=== PATIENT | female | born 1990 | race Caucasian/White ===

== ENCOUNTER 2016-04-26 09:36 | Emergency (ER) | payer OTHER ==
[2016-04-26 11:21] VITALS: BP 107/61
--- NOTE | 2016-04-26 11:34 | UC ---
Complaint Female HPI - HPI Summary HPI Summary: 25 yo healthy female presents with 2 weeks of intermittent dysuria, with 2-3 days of constant dysuria, increased frequency and urgency. One episode of hematuria noted in urine 3 days ago since resolved. No fevers or chills. No N/ V. No flank/back pain. No vaginal discharge, itching. Currently menstruating. - History Of Current Complaint Chief Complaint: UCGU Stated Complaint: URINARY COMPLAINT Time Seen by Provider: 04/26/16 11:34 Hx Obtained From: Patient Hx Last Menstrual Period: 04/21/16 Onset/Duration: Gradual Onset, Lasting Weeks - 2 weeks, Worse Since - 2-3 days ago Severity Initially: Mild Severity Currently: Moderate Pain Intensity: 2 Pain Scale Used: 0-10 Numeric Character: Burning Aggravating Factor(s): Urination Associated Signs And Symptoms: Positive: Negative - Risk Factors Ectopic Risk Factor: Negative Ovarian Torsion Risk Factor: Negative - Allergies/Home Medications Allergies/Adverse Reactions: Allergies Allergy/AdvReac Type Severity Reaction Status Date / Time Erythromycin Allergy Swelling Verified 04/26/16 11:15 Of Face,Lips,& Throat Home Medications: Home Medications Cranberry (Vaccinium Macrocarp [Cranberry] 500 mg PO DAILY 04/26/16 [History Confirmed 04/26/16] Norethindr/Eth Estradiol(Nf) [Lo Loestrin Fe (NF)] 1 tab PO DAILY 04/26/16 [ History Confirmed 04/26/16] Phenazopyridine HCl [Azo Urinary Pain Relief] 95 - 190 mg PO TID PRN 04/26/16 [ History Confirmed 04/26/16] PMH/Surg Hx/FS Hx/Imm Hx Previously Healthy: Yes Endocrine History Of: Denies: Diabetes - Surgical History Surgical History: None - Family History Known Family History: Positive: None, Unknown - Social History Occupation: Unemployed Lives: With Family Alcohol Use: Weekly Substance Use Type: None Smoking Status (MU): Light Every Day Tobacco Smoker Type: Smokeless Tobacco Amount Used/How Often: 1/2 Can a Day Length of Time of Smoking/Using Tobacco: 7 Years Have You Smoked in the Last Year: Yes Cessation Counseling: Patient Advised to Stop - Immunization History Hx Tetanus, Diphtheria Vaccination: Yes Vaccination Up to Date: Yes Review of Systems Constitutional: Other - urinary symptoms Skin: Negative Eyes: Negative ENT: Negative Respiratory: Negative Cardiovascular: Negative Gastrointestinal: Negative Genitourinary: Dysuria, Frequency, Urgency Motor: Negative Neurovascular: Negative Musculoskeletal: Negative Neurological: Negative Psychological: Negative All Other Systems Reviewed And Are Negative: Yes Physical Exam Triage Information Reviewed: Yes Appearance: Well-Appearing, No Pain Distress, Well-Nourished, Ill-Appearing Vital Signs: Initial Vital Signs Temp 97.5 F 04/26/16 11:17 Pulse 70 04/26/16 11:17 Resp 16 04/26/16 11:17 BP 107/61 04/26/16 11:17 Pulse Ox 100 04/26/16 11:17 Vital Signs Reviewed: Yes Eye Exam: Normal Respiratory Exam: Normal Respiratory: Positive: Chest non-tender, Lungs clear, Normal breath sounds, No respiratory distress, No accessory muscle use Cardiovascular: Positive: RRR, No Murmur, Pulses Normal, Brisk Capillary Refill Abdomen Description: Positive: Nontender, No Organomegaly, Soft. Negative: CVA Tenderness (R), CVA Tenderness (L), Distended, Guarding, Hepatomegaly, Peritoneal Signs, Splenomegaly Bowel Sounds: Positive: Present Musculoskeletal: Positive: Strength Intact, ROM Intact, No Edema Neurological: Positive: Alert Complaint Female Dx - Differential Dx/Diagnosis Differential Diagnosis/HQI/PQRI: Urinary Tract Infection Provider Diagnoses: 1. Uncomplicated cystitis Discharge - Discharge Plan Condition: Stable Disposition: HOME Patient Education Materials: Urinary Tract Infection in Women (ED) Referrals: Jeanine Weaver MD [Primary Care Provider] - (please follow up if your symptoms do not improve in 2 days. if you have any worsening or concerning symptoms go to the emergency department) Additional Instructions: Increase water intake. Finish whole antibiotic course. As discussed we will send your urine for culture.
== END 2016-04-26 12:05 | disposition home or self-care (01) ==
LOC: UCCORT 09:36
DX: N30.80 Other cystitis without hematuria (principal); Z88.1 Allergy status to other antibiotic agents; F17.210 Nicotine dependence, cigarettes, uncomplicated
CPT/HCPCS: 81003; 87077; 87086; 87186; 99212; G0463

== ENCOUNTER 2016-11-15 16:30 | Emergency (ER) | payer OTHER ==
[2016-11-15 18:07] VITALS: BP 120/62
[2016-11-15] MEDS ORDERED: Ibuprofen TAB* 600 MG PO ONE (18:17)
--- NOTE | 2016-11-15 18:26 | UC ---
Lower Extremity/Ankle HPI - HPI Summary HPI Summary: Twisted Left foot/ankle at soft ball last night medial ankle and foot pain--- has trouble bearing weight - History of Current Complaint Chief Complaint: UCLowerExtremity Stated Complaint: LEFT ANKLE/FOOT Time Seen by Provider: 11/15/16 18:08 Hx Obtained From: Patient Hx Last Menstrual Period: has mirena ?: No Onset/Duration: Sudden Onset, Lasting Days - 1 Severity Initially: Moderate Severity Currently: Moderate Pain Intensity: 8 Pain Scale Used: 0-10 Numeric Aggravating Factor(s): Standing, Ambulation Alleviating Factor(s): Rest, Elevation, Ice, OTC Meds Able to Bear Weight: Yes - with pain - Allergies/Home Medications Allergies/Adverse Reactions: Allergies Allergy/AdvReac Type Severity Reaction Status Date / Time Erythromycin Allergy Swelling Verified 11/15/16 18:02 Of Face,Lips,& Throat Home Medications: Home Medications Ibuprofen TAB* [Motrin TAB* 800 MG] 800 mg PO Q8H PRN 11/15/16 [History Confirmed 11/15/16] Levonorgestrel (Iud) [Mirena IUD] 20 mcg IU SEE INSTRUCTIONS 11/15/16 [History Confirmed 11/15/16] PMH/Surg Hx/FS Hx/Imm Hx Previously Healthy: Yes - Surgical History Surgical History: None - Family History Known Family History: Positive: None, Unknown - Social History Occupation: Employed Full-time Lives: With Family Alcohol Use: Occasionally Substance Use Type: None Smoking Status (MU): Never Smoked Tobacco Type: Smokeless Tobacco Amount Used/How Often: 1/2 Can a Day Length of Time of Smoking/Using Tobacco: 7 Years Have You Smoked in the Last Year: Yes Cessation Counseling: Patient Advised to Stop - Immunization History Hx Tetanus, Diphtheria Vaccination: Yes Vaccination Up to Date: Yes Review of Systems Constitutional: Negative Skin: Negative Eyes: Negative ENT: Negative Respiratory: Negative Cardiovascular: Negative Gastrointestinal: Negative Genitourinary: Negative Motor: Negative Neurovascular: Negative Musculoskeletal: Arthralgia - left medial ankle and foot pain Neurological: Negative Psychological: Negative Is Patient Immunocompromised?: No All Other Systems Reviewed And Are Negative: Yes Physical Exam Triage Information Reviewed: Yes Appearance: Well-Appearing, Well-Nourished, Pain Distress - mild Vital Signs: Initial Vital Signs Temp 97.8 F 11/15/16 18:04 Pulse 84 11/15/16 18:04 Resp 16 11/15/16 18:04 BP 120/62 11/15/16 18:04 Pulse Ox 100 11/15/16 18:04 Vital Signs Reviewed: Yes Eye Exam: Normal Eyes: Positive: Conjunctiva Clear ENT Exam: Normal ENT: Positive: Normal ENT inspection, Hearing grossly normal, TMs normal. Negative: Nasal congestion, Nasal drainage, Trismus, Muffled/hoarse voice Dental Exam: Normal Neck exam: Normal Neck: Positive: Supple, Nontender Respiratory Exam: Normal Respiratory: Positive: Chest non-tender, No respiratory distress, No accessory muscle use, Respiratory distress Cardiovascular Exam: Normal Cardiovascular: Positive: RRR, Pulses Normal, Brisk Capillary Refill Musculoskeletal Exam: Normal Musculoskeletal: Positive: No Edema, Strength Limited @ - left foot, ROM Limited @ - left foot Neurological Exam: Normal Neurological: Positive: Alert, Muscle Tone Normal Psychological Exam: Normal Skin Exam: Normal Diagnostics - Radiology No standard instances Xray Interpretation: No Acute Changes Radiology Interpretation Completed By: Radiologist Lower Extremity Course/Dx - Course Course Of Treatment: gel, padamja, crutches, rice, pain med, follow with ortho - Differential Dx/Diagnosis Provider Diagnoses: Left ankle sprain Discharge - Discharge Plan Condition: Stable Disposition: HOME Patient Education Materials: Ibuprofen (By mouth), Ankle Sprain (ED), Crutch Instructions (ED), Ankle Stirrup Splint (ED), RICE Therapy (ED) Referrals: Baldemar Javier MD [Medical Doctor] - 4 Days
--- NOTE | 2016-11-15 18:43 | RAD ---
HISTORY: Pain after softball injury, left foot pain COMPARISONS: July 31, 2003 VIEWS: 6, Frontal, lateral, and oblique views of the left foot and left ankle FINDINGS: BONE DENSITY: Normal. BONES: There is no displaced fracture. JOINTS: There is no arthropathy. ALIGNMENT: There is no dislocation. SOFT TISSUES: Unremarkable. OTHER FINDINGS: None. IMPRESSION: NO ACUTE OSSEOUS INJURY TO THE LEFT FOOT OR LEFT ANKLE. IF SYMPTOMS PERSIST, RECOMMEND REPEAT IMAGING.
[2016-11-15] MEDS ORDERED: HYDROcodone/ACETAMIN 5-325 MG* 1 TAB PO ONE (19:01)
== END 2016-11-15 19:38 | disposition home or self-care (01) ==
LOC: UCCORT 16:30
DX: S99.912A Unspecified injury of left ankle, initial encounter (principal); X50.1XXA Overexertion from prolonged static or awkward postures, initial encounter; Y93.64 Activity, baseball; Y92.838 Other recreation area as the place of occurrence of the external cause; Z88.1 Allergy status to other antibiotic agents
CPT/HCPCS: 99213; A9270-GY; G0463

== ENCOUNTER 2017-07-27 18:42 | Emergency (ER) | payer OTHER ==
[2017-07-27 18:50] VITALS: BP 129/75
--- NOTE | 2017-07-27 19:27 | RAD ---
HISTORY: Vaginal bleeding in a female. COMPARISONS: Pelvic ultrasound dated July 06, 2017 TECHNIQUE: Multiple transverse and longitudinal ultrasound images were obtained of the pelvis using grayscale, color flow, spectral and M-mode sonographic imaging. FINDINGS: UTERUS: The uterus is normal in shape, size, contour, and echotexture. There is anechoic and avascular fluid at the level of the cervix consistent with a nabothian cyst. GESTATION: No products of conception or a gestational sac are visualized. CUL-DE-SAC: There is no free fluid within the cul-de-sac. RIGHT OVARY: The right ovary measures 4.6 x 1.9 x 2.0 cm. LEFT OVARY: The left ovary measures 3.1 x 1.7 x 3.9 cm. IMPRESSION: There is no sonographic evidence of . Differential in the presence of a positive beta hCG includes too early to visualize, missed or ectopic . Recommend close clinical and beta hCG follow up.
--- OUTSIDE RECORDS SUMMARY | 2017-07-27 19:47 | XMS REPORT ---
:1990 External Reference #:[id number] Author Organization [facility] Address [address] [place] [address] Phone [phone] Care Team Providers Name Role Phone Jeanine Weaver M.D. Care Team Information Clinical Administrative Coordinator Unavailable Jeanine Weaver M.D. Primary Care Physician Unavailable Payers Type Date Identification Numbers Payment Provider Subscriber Commercial Effective: Policy Number: Charissa Marina 2017 [id number] Expires: 2017 PayID: [id number] [address] [place] [address] Medigap Part B Effective: Policy Number: Uriel Carrington 2014 [id number] Expires: 2017 PayID: [id number] [address] Attn: [place] [address] Problems Date Description Provider Status Onset: 09/12/2015 Mild recurrent major depression Ursula Davalos NP Active Onset: 10/22/2015 Cyst of ovary Jeanine Weaver M.D. 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 [employer] Cigarette Use Nonsmoker ETOH Use Occasionally consumes alcohol Recreational Drug Use Denies Drug Use Smoking Nonsmoker Daily Caffeine Consumes on average 1 cup of coffee per day Exercise Type/Frequency Exercises sporadically Seat Belt/Car Seat Always uses seat belt Allergies, Adverse Reactions, Alerts Date Description Reaction Status Severity Comments 05/17/2015 Seasonal active 05/17/2015 Erythromycin active Medications Medication Date Status Form Strength Qnty SIG Indications Ordering Provider Metronidazole 07/06/ Active Tablets 500mg 14tab take 1 N76.0 Shira Moran 2018 s tablet by [place], mouth twice CDL DRIVER a day for 7 days Gabapentin 03/26/ Active Capsules 300mg 90cap one by F41.9 Shira Moran 2018 s mouth three [place], times daily CDL DRIVER Escitalopram 03/26/ Hx Tablets 5mg 14tab 1 by mouth F41.9 Kavita Newton Oxalate 2018 - s every day Kai, 04/26/ for a week, CDL DRIVER 2018 then one by mouth every other day until gone Escitalopram 01/11/ Hx Tablets 10mg 30tab 1 by mouth F41.9 Jeanine Oxalate 2017 - s every day [place], 03/26/ M.D. 2017 Ativan 01/11/ Hx Tablets 0.5mg 30tab take 02/09 - F41.9 Shira Moran 2017 - s 1 tab as [place], 03/26/ needed for CDL DRIVER 2018 anxiety Flagyl 01/11/ Hx Tablets 500mg 14tab 1 by mouth N76.0 Shira Moran 2017 - s twice a day [place], 03/23/ x 7d CDL DRIVER 2018 Metronidazole 10/16/ Hx Gel 0.75% 30gm insert 1 N76.0 Marine 2017 - applicator Nima, 01/10/ full WASTE RECYCLER 2017 nightly for one week Mirena (52 MG) 08/06/ Hx IUD 20mcg/24H 08/06/16 Marine 2017 - R Remove Nima, 06/22/ 07/2021 WASTE RECYCLER 2017 Lessina 03/26/ Hx Tablets 0.1-20mg- 1pack 1 by mouth Z30.8 Leilani 2017 - mcg every day Magda, 08/05/ WASTE RECYCLER 2016 Lessina 09/22/ Hx Tablets 0.1-20mg- 1pack 1 by mouth Z30.8 Campbell Oakley 2016 - mcg every day Conchis, 02/04/ M.D. 2015 Xualexander 09/11/ Hx Patches 150-35mcg 6unit apply 1 Jeanine 2016 - Weekly /24HR s patch [place], 09/21/ weekly and M.D. 2016 replace prior Bupropion HCL 09/11/ Hx Tablets ER 150mg 30tab 1 by mouth F33.0 Campbell Oakley ER (XL) 2016 - 24HR s every day Midmendoza, 08/05/ M.D. 2017 Nuvaring 05/16/ Hx Ring 0.12-0.01 1unit insert one Z30.8 Favio Bruno 2016 - 5[facility]HR [facility] and M.D. 2016 remove 3 weeks later and replace the ring 1 week after removal Escitalopram 05/16/ Hx Tablets 10mg 30tab Take 1 F33.0 Favio Adams 2016 - s Tablet By Olivia, 09/11/ Mouth Once M.D. 2016 Daily Zyrtec Allergy / Hx Capsules 10mg use by Unknown 0000 - mouth q.d 2016 Prednisone / Hx Tablets 10mg 4 by mouth Unknown 0000 - x 2 days, 09/11/ 3 by 2015 mouth x 2 days, then 2 by mouth x 2 days,then 1 by mouth x 1 day Vitamin D / Hx Tablets 2000Unit 1 by mouth Unknown 0000 - every day 2015 Immunizations CPT Code Status Date Vaccine Lot # [id number] Given 05/17/2007 Gardasil vacine typs 6,11,16,18 3 dose schedule 16539 Given 05/06/2007 Gardasil vacine typs 6,11,16,18 3 dose schedule 23372 Given 03/03/2007 Gardasil vacine typs 6,11,16,18 3 dose schedule 00336 Given 11/12/2006 Meningococcal Conjugate Vaccine,Serogroups For Intramuscular Use 70021 Given 11/12/2006 Tdap Tetanus, W Pertussis 85889 Given 04/30/2004 Hepatitis B Immunization, -19 Years 67327 Given 09/25/2003 Hepatitis B Immunization, -19 Years 05924 Given 07/31/2003 Hepatitis B Immunization, [place]-19 Years 85770 Given 04/28/1996 (IPV) Inactive Poliovirus Vaccine 95006 Given 04/28/1996 MMR Virus Immunization 69192 Given 04/28/1996 DTaP Immunization 49959 Given 11/01/1992 DTaP Immunization 04212 Given 11/01/1992 (IPV) Inactive Poliovirus Vaccine 87994 Given 08/02/1992 MMR Virus Immunization 39248 Given 08/02/1992 Hib PRP-T Conjugate 4 Dose Schedule 89933 Given 1991 DTaP Immunization 72518 Given 1991 Hib PRP-T Conjugate 4 Dose Schedule 27565 Given 1991 (IPV) Inactive Poliovirus Vaccine 83170 Given 1991 Hib PRP-T Conjugate 4 Dose Schedule 15377 Given 1991 (IPV) Inactive Poliovirus Vaccine 64871 Given 1990 DTaP Immunization 20937 Given 1991 Hib PRP-T Conjugate 4 Dose Schedule Vital Signs Date Vital Result Comment 07/06/2017 BP Systolic 104 mmHg BP Diastolic 80 mmHg Heart Rate 84 /min Body Temperature 98.8 F Height 61.5 inches 5'1.50" Weight 144.00 lb BMI (Body Mass Index) 26.8 kg/m2 06/22/2017 BP Systolic 104 mmHg BP Diastolic 60 mmHg Heart Rate 72 /min Body Temperature 97.4 F Respiratory Rate 16 /min Height 61.5 inches 5'1.50" Weight 148.50 lb BMI (Body Mass Index) 27.6 kg/m2 04/27/2017 BP Systolic 102 mmHg BP Diastolic 70 mmHg Heart Rate 84 /min Body Temperature 97.9 F Height 61.5 inches 5'1.50" Weight 148.00 lb BMI (Body Mass Index) 27.5 kg/m2 03/26/2017 BP Systolic 108 mmHg BP Diastolic 62 mmHg Heart Rate 68 /min Body Temperature 98.0 F Height 61.5 inches 5'1.50" Weight 152.00 lb BMI (Body Mass Index) 28.3 kg/m2 03/24/2017 BP Systolic 102 mmHg BP Diastolic 64 mmHg Heart Rate 74 /min Body Temperature 98.1 F Respiratory Rate 16 /min Height 61.5 inches 5'1.50" Weight 150.00 lb BMI (Body Mass Index) 27.9 kg/m2 01/11/2017 BP Systolic 102 mmHg BP Diastolic 68 mmHg Heart Rate 90 /min Body Temperature 98.4 F Height 61.5 inches 5'1.50" Weight 155.25 lb BMI (Body Mass Index) 28.9 kg/m2 10/16/2016 BP Systolic 102 mmHg BP Diastolic 64 mmHg Heart Rate 74 /min Body Temperature 97.9 F Respiratory Rate 16 /min Height 61.5 inches 5'1.50" Weight 151.00 lb BMI (Body Mass Index) 28.1 kg/m2 08/06/2016 BP Systolic 100 mmHg BP Diastolic 70 mmHg Heart Rate 78 /min Body Temperature 98.4 F Height 61.5 inches 5'1.50" Weight 153.00 lb BMI (Body Mass Index) 28.4 kg/m2 02/05/2016 BP Systolic 110 mmHg BP Diastolic 60 mmHg Heart Rate 78 /min Body Temperature 98.1 F Respiratory Rate 16 /min Height 61.5 inches 5'1.50" Weight 150.12 lb BMI (Body Mass Index) 27.9 kg/m2 10/22/2015 BP Systolic 120 mmHg BP Diastolic 80 mmHg Heart Rate 64 /min Body Temperature 97.3 F Respiratory Rate 16 /min Height 61.5 inches 5'1.50" Weight 149.00 lb BMI (Body Mass Index) 27.7 kg/m2 09/25/2015 BP Systolic 102 mmHg BP Diastolic 60 mmHg Heart Rate 80 /min Body Temperature 97.9 F Respiratory Rate 16 /min Height 61.5 inches 5'1.50" 09/23/2015 BP Systolic 102 mmHg BP Diastolic 74 mmHg Heart Rate 96 /min Body Temperature 99.5 F Height 61.5 inches 5'1.50" Weight 155.00 lb BMI (Body Mass Index) 28.8 kg/m2 09/12/2015 BP Systolic 100 mmHg BP Diastolic 60 mmHg Heart Rate 56 /min Body Temperature 97.9 F Respiratory Rate 16 /min Height 61.5 inches 5'1.50" Weight 159.38 lb BMI (Body Mass Index) 29.6 kg/m2 05/17/2015 BP Systolic 128 mmHg BP Diastolic 76 mmHg Heart Rate 78 /min Body Temperature 98.2 F Respiratory Rate 15 /min Height 61.5 inches 5'1.50" Weight 163.50 lb BMI (Body Mass Index) 30.4 kg/m2 Results Test Date Test Result H/L Range Note Vaginitis Nuswab 10/16/2016 Atopobium vaginae High - 2 Score 1 Bvab 2 High - 2 Score 1 Megasphaera 1 High - 2 Score 1, 2 Clary albicans, Arti Negative Negative 1 Clary glabrata, Arti Negative Negative 1, 3 Trich vag by Arti Negative Negative 1 Laboratory test finding 10/16/2016 Wet Prep (Fma,CMC,CX) clue cells prest Urine (a) 08/06/2016 SP Grav 1.015 Urine, (Fma/CMC/CTX) negative HIV 1/O/2 Ag/AB Prelim 08/06/2016 HIV Screen 4th Non Reactive Non Reactive 4 W/[place] RFX Sup Generation wRfx Laboratory test 08/06/2016 RPR Non Reactive Non Reactive 4 finding Hepatitis Panel, Acute 08/06/2016 Hep A Ab, IgM Negative Negative 4 HBsAg Screen Negative Negative 4 Hep B Core Ab, IgM Negative Negative 4 Hep C Virus Ab <0.1 s/coratio 0.0-0.9 4, 5 Chlamydia/GC/Trichomona 08/06/2016 Chlamydia by Arti Negative Negative 4 , 6 Gonococcus by Arti Negative Negative 4, 7 Trich vag by Arti Negative Negative 4, 8 Laboratory test 04/26/2016 Urine Culture And SEE RESULT BELOW 9, 10 finding Sensitivities Laboratory test 02/05/2016 , Serum negative finding Comprehensive 09/25/2015 Sodium 135 mEq/L 134-149 Metabolic Prof Potassium 3.5 mEq/L Low 3.6-5.5 11 Chloride 100 mEq/L 94-112 Carbon Dioxide 24 mEq/L 21-32 Glucose 109 mg/dL High 70-105 BUN 7 mg/dL 6-26 Creatinine 0.8 mg/dL 0.6-1.4 BUN/Creat Ratio 8.8 CALC 8.0-36.0 Calcium 9.1 mg/dL 8.6-10.2 Total Protein 6.8 g/dL 6.4-8.3 Albumin 4.3 g/dL 3.8-5.5 Globulin 2.5 g/dL 2.0-4.8 A/G Ratio 1.7 CALC 0.6-2.3 Alk. Phosphatase 61 U/L 30-110 Alt (SGPT) 21 U/L 7-35 Ast (Sgot) 21 U/L 5-34 Total Bilirubin 0.6 mg/dL 0.2-1.3 GFR Non- >60 ml/min/1.73m^ >=60 GFR >60 ml/min/1.73m^ >=60 CBC Electronic ([facility]) 09/25/2015 WBC 4.6 3.6-9.6 RBC 4.04 3.90-5.70 Hemoglobin (Fma/CMC/CTX) 12.5 g/dL 12.1 - 17.2 Hematocrit (Fma/CMC/CTX) 36.0 % Low 36.1 - 50.3 Platelets 127 10^3/ul Low 150-400 Lymph% 22.0 % 17.0-48.0 Mixed% 3.0 Neutrophils % 75.0 Mean Corpuscular Vol 89 82.2-97.4 Mean Corpuscular Hemoglobin 31.1 27.6-33.3 Mean Corpuscular Hemo Concen 34.8 32.0-36.0 RDW 12.7 11.6-13.7 Mean Platelet Volume 7.3 5.5-11.0 Ua - Micro ([facility]) 09/25/2015 Appearance CLEAR Color YELLOW Glucose, Urine (a/CMC/CTX) NEG Bilirubin NEG Ketones 15 MG/DL SP Grav 1.020 Blood TRACE-INTACT PH 6.0 Protein 1+ Urobil 1.0 Nitrite NEG Leukocytes (a/CMC/Centrex) TRACE Hyaline - /Lpf Granular - /Lpf WBC (a,Centrex) 5-8 RBC 1-2 Mucus (a/CBC/Centrex) MOD AMT /Lpf Epith MOD AMT /Lpf Bacteria 1+ /Hpf Amorphous (Fma/CMC/Centrex) - /Lpf Crystals, Fluid (a/CMC/CTX) - Z#Comments NOT CLEAN CATCH Urine ([facility]) 09/23/2015 SP Grav 1.020 Urine, (a/CMC/CTX) neg Laboratory test finding 05/17/2015 TSH 3.16 mIU/L 0.50-6.00 Vitamin D25 19 Low 30-100 Comprehensive Metabolic Prof 05/17/2015 Sodium 141 mEq/L 134-149 Potassium 4.6 mEq/L 3.6-5.5 Chloride 104 mEq/L 94-112 Carbon Dioxide 28 mEq/L 21-32 Glucose 97 mg/dL 70-105 BUN 9 mg/dL 6-26 Creatinine 0.7 mg/dL 0.6-1.4 BUN/Creat Ratio 12.9 CALC 8.0-36.0 Calcium 10.2 mg/dL 8.6-10.2 Total Protein 7.3 g/dL 6.4-8.3 Albumin 4.8 g/dL 3.8-5.5 Globulin 2.5 g/dL 2.0-4.8 A/G Ratio 1.9 CALC 0.6-2.3 Alk. Phosphatase 73 U/L 30-110 Alt (SGPT) 17 U/L 7-35 Ast (Sgot) 17 U/L 5-34 Total Bilirubin 0.4 mg/dL 0.2-1.3 GFR Non- >60 ml/min/1.73m^ >=60 GFR >60 ml/min/1.73m^ >=60 CBC Electronic (a) 05/17/2015 WBC 12.4 High 3.6-9.6 12 RBC 4.56 3.90-5.70 Hemoglobin (Fma/CMC/CTX) 13.9 g/dL 12.1 - 17.2 Hematocrit (Fma/CMC/CTX) 41.9 % 36.1 - 50.3 Platelets 244 10^3/ul 150-400 Lymph% 15.2 % Low 17.0-48.0 Mixed% 2.3 Neutrophils % 82.5 Mean Corpuscular Vol 92 82.2-97.4 Mean Corpuscular Hemoglobin 30.4 27.6-33.3 Mean Corpuscular Hemo Concen 33.1 32.0-36.0 RDW 13.7 11.6-13.7 Mean Platelet Volume 6.5 5.5-11.0 1 1 nuswab 2 Calculate total score by adding the 3 individual bacterial vaginosis (BV) marker scores together. Total score is interpreted as follows: Total score 0-1: Indicates the absence of BV. Total score 2: Indeterminate for BV. Additional clinical data should be evaluated to establish a diagnosis. Total score 3-6: Indicates the presence of BV. This test was developed and its performance characteristics determined by [facility]. It has not been cleared or approved by the Food and Drug Administration. The FDA has determined that such clearance or approval is not necessary. 3 This test was developed and its performance characteristics determined by [facility]. It has not been cleared or approved by the Food and Drug Administration. The FDA has determined that such clearance or approval is not necessary. 4 SRC:vaginal swab 1 orange aptima swab 5 Negative: < 0.8 Indeterminate: 0.8 - 0.9 Positive: > 0.9 The CDC recommends that a positive HCV antibody result be followed up with a HCV Nucleic Acid Amplification test (963059). 6 Source of Specimen: vaginal swab 1 orange 7 Source of Specimen: vaginal swab 1 orange 8 Source of Specimen: vaginal swab 1 orange 9 [id number] SEE RESULT BELOW Name: MAYE MARINA : [address]: Blas Bill MD Acct: [id number] Unit: [id number] AGE: 25 Location: [facility] Re04/26/16 SEX: F Status: DEP ER SPEC: [id number] JENNIFER: 04/26/16-[address] [facility] [address]: Susana Ignacio WASTE RECYCLER-C REQ: [id number] RECD: 04/27/16-105 STATUS: PATRICK ALSTON DR: Jeanine Weaver MD [facility] _ SOURCE: URINE SPDESC: ORDERED: Urine Culture COMMENTS: [id number] Procedure Result Reported Site Urine Culture Final 04/29/16- 0904 ML Organism 1 ESCHERICHIA COLI [place] Count 1-10,000 (Few) CFU/ML Organism 2 NORMAL THOM [place] Count 50-75,000 (Many) CFU/ML 1. ESCHERICHIA COLI [facility].I[facility]. RX --------- ------ Ampicillin 8 S Cefazolin <=4 S Cefepime <=1 S Ceftriaxone <=1 S Ciprofloxacin <=0.25 S Gentamicin <=1 S Levofloxacin <=0.12 S Meropenem <=0.25 S Nitrofurantoin <=16 S Tetracycline <=1 S Pipercillin/Tazobactam <=4 S Trimethoprim/Sulfamethoxazole <=20 S Amoxicillin/Clavulanic Acid 4 S Aztreonam <=1 S Contact the Microbiology Department for any additional antibiotic reporting. * ML - MAIN LAB ([facility]) . END OF REPORT * ML=Testing performed at Main Lab DEPARTMENT OF PATHOLOGY, [address] [place] [address] Bryant Evans M.D. Director [facility] # [id number] RESULTS VERIFIED BY REPEAT ANALYSIS 12 RESULTS RECHECKED Procedures Date CPT Code Description Status 06/22/2017 82200 Remove Intrauterine Device Completed 08/06/2016 31275 Insertion of intrauterine device (IUD) Completed Encounters Type Date Location Provider CPT E/M Dx Office Visit 06/22/2017 7:15p Main Office ALYSSA Valles 21679 N94.12 N76.0 Z30.432 Office Visit 04/27/2017 11:30a [place] [address] F41.9 F33.0 Office Visit 03/26/2017 11:15a [place] [address] F41.9 F33.0 Office Visit 03/24/2017 1:40p [facility] Jeanine Weaver M.D. 28611 F41.9 N92.6 N76.0 Office Visit 01/11/2017 11:00a [place] [address] F41.9 N76.0 Office Visit 10/16/2016 11:30a [facility] ALYSSA Valles 80587 N76.0 Office Visit 08/06/2016 1:00p Main Office ALYSSA Valles 98378 Z11.3 N92.6 Z30.430 Office Visit 02/05/2016 1:15p [facility] Leonora PorterKeny-Shaun 93518 N91.2 Office Visit 10/22/2015 4:40p Main Office Jeanine Weaver M.D. 00133 F33.0 N83.20 D69.6 Office Visit 09/25/2015 2:30p [place] [address] R10.32 R35.0 N64.4 Office Visit 09/23/2015 2:30p [place] [address] Z30.8 Office Visit 09/12/2015 5:50p Main Office Jeanine Weaver M.D. 73093 F33.0 Z30.8 Office Visit 05/17/2015 4:00p [place] [address] F33.0 Z30.8 Plan of Care 07/06/2017 - Shira Ogden NPN94.12 Deep dyspareuniaComments:will get transvaginal USR63.4 Abnormal weight lossComments:declines blood workN92.6 Irregular menstruation, unspecifiedNew Labs:Urine (Fma)Comments:urine is negative but may be early in as her menses are irregular due to IUD removal. Pt declined blood testR30.0 DysuriaNew Labs:Ua - Micro (Fma)Comments:suspect due to BVZ11.3 Encntr screen for infections w sexl mode of transmissComments:I will call you if the results are positive otherwise , you will get a note in the mail or on portal for negative results. I encourage you and your partner to both get tested before not using barrier methods to prevent STD transmission.N76.0 Acute vaginitisNew Medication: Metronidazole 500 mgComments:Avoid: douchingpanty linerspantyhoseocclusive pantsregular use of condoms may help prevent BV because semen is alkaline and may trigger symptoms for some womenYou can resume sexual relations once you are feeling betterAllComments:~B_~U_Medication Management~b_~u_ Patient Understands medications she's taking? Yes No Are there Barriers to Adherence? Yes No Has the patient been asked about herbal supplements and therapies, and OTC meds? Yes No ~B_~U_Care Plan~b_~u_1. Patient has been queried about patient's goals/preferences and functional/lifestyle goals at relevant visits. If relevant, describe: na2. Treatment goals as explained to the patient: above3. Are there barriers to meeting treatment goals? Yes No If Yes, please describe:4. Self-Management goals as described to the patient: Yes NoFollow up:As always, we strongly encourage a healthy diet and making physical activity a part of your every day life. If you have questions about how or where to start, please contact the office.
== END 2017-07-27 19:56 | disposition left against medical advice (07) ==
LOC: ED 18:42
DX: O20.9 Hemorrhage in early pregnancy, unspecified (principal); Z3A.01 Less than 8 weeks gestation of pregnancy; Z53.21 Procedure and treatment not carried out due to patient leaving prior to being seen by health care provider
CPT/HCPCS: 76817

== ENCOUNTER 2017-12-25 13:47 | Emergency (ER) | payer OTHER ==
--- OUTSIDE RECORDS SUMMARY | 2017-12-25 14:00 | XMS REPORT ---
:1990 External Reference #:[id number] Author Organization [facility] Address [address] [place] [address] Phone [phone] Care Team Providers Name Role Phone Jeanine Weaver M.D. Care Team Information High [facility] Justice Unavailable Jeanine Weaver M.D. Primary Care Physician Unavailable Payers Type Date Identification Numbers Payment Provider Subscriber Commercial Effective: Policy Number: Charissa Hubbardley 2017 [id number] Expires: 2018 PayID: [id number] 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 [employer] Cigarette Use Nonsmoker ETOH Use Occasionally consumes [...] Form Strength Qnty SIG Indications Ordering Provider Fluticasone 08/13 Active Suspension 50mcg/Act 15.80 2 sprays J30.9 Kavita Newton Propionate 0ml each rosibel Quinntril DAY CARE SUPERVISOR every night at bedtime Loratadine-D 08/13 Active Tablets ER 10-240mg 90tab take one by J30.9 Kavita Newton 24HR 24HR s mouth daily Kai, DAY CARE SUPERVISOR Gabapentin 03/26 Active Capsules 300mg 90cap one by F41.9 s mouth three Nima, times daily SOIL TESTER Zyrtec Allergy Active Capsules 10mg use by Unknown /0000 mouth q.d Active Tablets 27-0.8mg Unknown /0000 Metronidazole 07/06 Hx Tablets 500mg 14tab take 1 N76.0 Shira Moran s tablet by Alin, - mouth twice DAY CARE SUPERVISOR 08/13 a day for days Escitalopram 03/26 Hx Tablets 5mg 14tab 1 by mouth F41.9 Kavita Newton Oxalate /2017 s every day Kai, - for a week, DAY CARE SUPERVISOR 04/26 then one by mouth every other day until gone Escitalopram 01/11 Hx Tablets 10mg 30tab 1 by mouth F41.9 Jeanine Adams /2016 s every day Owen - M.DAugustin 03/26 Ativan 01/11 Hx Tablets 0.5mg 30tab take 02/09 - F41.9 Shira Moran s 1 tab as Alin, - needed for DAY CARE SUPERVISOR 03/26 anxiety Flagyl 01/11 Hx Tablets 500mg 14tab 1 by mouth N76.0 Shira Moran s twice a day Alin, - x 7d DAY CARE SUPERVISOR 03/23 Metronidazole 10/16 Hx Gel 0.75% 30gm insert 1 N76.0 applicator Nima, - full SOIL TESTER 01/10 nightly for one week Mirena (52 MG) 08/06 Hx IUD 20mcg/24H 08/06/16 R Remove Nima, - 07/2021 SOIL TESTER 06/22 Lessina 03/26 Hx Tablets 0.1-20mg- 1pack 1 by mouth Z30.8 Leilani mcg every day Magda, - SOIL TESTER 08/05 Lessina 09/22 Hx Tablets 0.1-20mg- 1pack 1 by mouth Z30.8 Campbell Oakley /2015 mcg every day Conchis, - M.D. 02/04 Xulane 09/11 Hx Patches 150-35mcg 6unit apply 1 Weekly /24HR s patch [place], - weekly and M.D. 09/21 replace prior Bupropion HCL 09/11 Hx Tablets ER 150mg 30tab 1 by mouth F33.0 Campbell Oakley ER (XL) 24HR s every day Conchis, - M.D. 08/05 Nuvaring 05/16 Hx Ring 0.12-0.01 1unit insert one Z30.8 Favio Bruno 5mg/24HR s ring into [facility], - vagina and M.D. 09/11 remove weeks later and replace the ring 1 week after removal Escitalopram 05/16 Hx Tablets 10mg 30tab Take 1 F33.0 Favio Bruno s Tablet By Olivia, - Mouth Once M.D. 09/112016 Prednisone 00 Hx Tablets 10mg 4 by mouth Unknown /0000 x 2 days, - then 3 by 09/11 mouth x days, then 2 by mouth x 2 days,then 1 by mouth x 1 day Vitamin D Hx Tablets 2000Unit 1 by mouth Unknown /0000 every day - 02/04 Immunizations CPT Code Status Date Vaccine Lot # [id number] Given 05/17/2007 Gardasil vacine typs 6,11,16,18 3 dose schedule 70136 Given 05/06/2007 Gardasil vacine typs 6,11,16,18 3 dose schedule 35437 Given 03/03/2007 Gardasil vacine typs 6,11,16,18 3 dose schedule 73391 Given 11/12/2006 Meningococcal Conjugate Vaccine,Serogroups For Intramuscular Use 38514 Given 11/12/2006 Tdap Tetanus, W Pertussis 62997 Given 04/30/2004 Hepatitis B Immunization, -19 Years 77616 Given 09/25/2003 Hepatitis B Immunization, -19 Years 03631 Given 07/31/2003 Hepatitis B Immunization, [place]-19 Years 21469 Given 04/28/1996 (IPV) Inactive Poliovirus Vaccine 96272 Given 04/28/1996 MMR Virus Immunization 21245 Given 04/28/1996 DTaP Immunization 32982 Given 11/01/1992 DTaP Immunization 63115 Given 11/01/1992 (IPV) Inactive Poliovirus Vaccine 76980 Given 08/02/1992 MMR Virus Immunization 26150 Given 08/02/1992 Hib PRP-T Conjugate 4 Dose Schedule 60590 Given 1991 DTaP Immunization 60566 Given 1991 Hib PRP-T Conjugate 4 Dose Schedule 88247 Given 1990 (IPV) Inactive Poliovirus Vaccine 57963 Given 1991 Hib PRP-T Conjugate 4 Dose Schedule 40863 Given 1991 (IPV) Inactive Poliovirus Vaccine 04689 Given 1991 DTaP Immunization 74247 Given 1991 Hib PRP-T Conjugate 4 Dose Schedule Vital Signs Date Vital Result Comment 12/23/2017 BP Systolic 108 mmHg BP Diastolic 78 mmHg Heart Rate 84 /min Body Temperature 97.7 F Respiratory Rate 16 /min Height 61.5 inches 5'1.50" Weight 143.38 lb BMI (Body Mass Index) 26.6 kg/m2 08/13/2017 BP Systolic 100 mmHg BP Diastolic 60 mmHg Heart Rate 72 /min Body Temperature 98.7 F Respiratory Rate 16 /min Height 61.5 inches 5'1.50" Weight 140.00 lb BMI (Body Mass Index) 26.0 kg/m2 07/06/2017 BP Systolic 104 mmHg BP Diastolic [...] Test Date Test Result H/L Range Note Ua - Micro (Fma) 07/06/2017 Appearance CLEAR Color YELLOW Glucose, Urine (Fma/CMC/CTX) NEG Bilirubin NEG Ketones NEG SP Grav 1.010 Blood NEG PH 7.0 Protein NEG Urobil 0.2 Nitrite NEG Leukocytes (Fma/CMC/Centrex) LARGE Hyaline - /Lpf Granular - /Lpf WBC (Fma,Centrex) >50 RBC 2-3 Mucus - /Lpf Epith OCC /Lpf Bacteria 4+ /Hpf Amorphous - /Lpf Crystals, Fluid (Fma/CMC/CTX) - Z#Comments - Urine (Fma) 07/06/2017 SP Grav 1.010 Urine, (Fma/CMC/CTX) NEGATIVE Vaginitis Plus Nuswab 07/06/2017 Atopobium vaginae High - 2 Score 1 Bvab 2 High - 2 Score 1 Megasphaera 1 High - 2 Score 1, 2 Clary albicans, Arti Negative Negative 1 Clary glabrata, Arti Negative Negative 1, 3 Chlamydia trachomatis, Arti Negative Negative 1 Neisseria gonorrhoeae, Arti Negative Negative 1 Trich vag by Arti Negative Negative 1 Vaginitis Nuswab 10/16/2016 Atopobium vaginae High - 2 Score 4 Bvab 2 High - 2 Score 4 Megasphaera 1 High - 2 Score 4, 5 Clary albicans, Arti Negative Negative 4 Clary glabrata, Arti Negative Negative 4, 6 Trich vag by Arti Negative Negative 4 Laboratory test 10/16/2016 Wet Prep (Fma,CMC,CX) clue cells prest finding Chlamydia/GC/Trichom 08/06/2016 Chlamydia by Arti Negative Negative 7, 8 arnaud Gonococcus by Arti Negative Negative 7, 9 Trich vag by Arti Negative Negative 7, 10 Hepatitis Panel, Acute 08/06/2016 Hep A Ab, IgM Negative Negative 7 HBsAg Screen Negative Negative 7 Hep B Core Ab, IgM Negative Negative 7 Hep C Virus Ab <0.1 s/coratio 0.0-0.9 7, 11 Laboratory test 08/06/2016 RPR Non Reactive Non Reactive 7 finding HIV 1/O/2 Ag/AB Prelim 08/06/2016 HIV Screen 4th Non Reactive Non Reactive 7 W/[place] RFX Sup Generation wRfx Urine ([facility]) 08/06/2016 SP Grav 1.015 Urine, (Fma/CMC/CTX) negative Laboratory test 04/26/2016 Urine Culture And SEE RESULT BELOW 12, 13 finding Sensitivities Laboratory test 02/05/2016 , Serum negative finding Comprehensive 09/25/2015 Sodium 135 mEq/L 134-149 Metabolic Prof Potassium 3.5 mEq/L Low 3.6-5.5 14 Chloride 100 mEq/L 94-112 Carbon Dioxide 24 [...] >=60 GFR >60 ml/min/1.73m^ >=60 CBC Electronic ([facility]) 09/25/2015 WBC 4.6 3.6-9.6 RBC 4.04 3.90-5.70 Hemoglobin (Fma/CMC/CTX) 12.5 g/dL 12.1 - 17.2 Hematocrit (Fma/CMC/CTX) 36.0 % Low 36.1 - 50.3 Platelets 127 10^3/ul Low 150-400 Lymph% 22.0 % 17.0-48.0 Mixed% 3.0 Neutrophils % 75.0 Mean Corpuscular Vol 89 82.2-97.4 Mean Corpuscular Hemoglobin 31.1 27.6-33.3 Mean Corpuscular Hemo Concen 34.8 32.0-36.0 RDW 12.7 11.6-13.7 Mean Platelet Volume 7.3 5.5-11.0 Ua - Micro ([facility]) 09/25/2015 Appearance CLEAR Color YELLOW Glucose, Urine [...] (a/CMC/CTX) - Z#Comments NOT CLEAN CATCH Urine ([facility]) 09/23/2015 SP Grav 1.020 Urine, (a/CMC/CTX) neg [...] >=60 GFR >60 ml/min/1.73m^ >=60 CBC Electronic ([facility]) 05/17/2015 WBC 12.4 High 3.6-9.6 15 RBC 4.56 3.90-5.70 Hemoglobin (Fma/CMC/CTX) 13.9 g/dL 12.1 - 17.2 Hematocrit (Fma/CMC/CTX) 41.9 % 36.1 - 50.3 Platelets 244 10^3/ul 150-400 Lymph% 15.2 % Low 17.0-48.0 Mixed% 2.3 Neutrophils % 82.5 Mean Corpuscular Vol 92 82.2-97.4 Mean Corpuscular Hemoglobin 30.4 27.6-33.3 Mean Corpuscular Hemo Concen 33.1 32.0-36.0 RDW 13.7 11.6-13.7 Mean Platelet Volume 6.5 5.5-11.0 1 1 orange aptima 2 Calculate total score by adding the 3 individual bacterial vaginosis (BV) marker scores together. Total score is interpreted as follows: Total score 0-1: Indicates the absence of BV. Total score 2: Indeterminate for BV. Additional clinical data should be evaluated to establish a diagnosis. Total score 3-6: Indicates the presence of BV. This test was developed and its performance characteristics determined by [facility]. It has not been cleared or approved by the Food and Drug Administration. The FDA has determined that such clearance or approval is not necessary. 3 This test was developed and its performance characteristics determined by [facility]. It has not been cleared or approved by the Food and Drug Administration. The FDA has determined that such clearance or approval is not necessary. 4 1 nuswab 5 Calculate total score by adding the 3 individual bacterial vaginosis (BV) marker scores together. Total score is interpreted as follows: Total score 0-1: Indicates the absence of BV. Total score 2: Indeterminate for BV. Additional clinical data should be evaluated to establish a diagnosis. Total score 3-6: Indicates the presence of BV. This test was developed and its performance characteristics determined by [facility]. It has not been cleared or approved by the Food and Drug Administration. The FDA has determined that such clearance or approval is not necessary. 6 This test was developed and its performance characteristics determined by [facility]. It has not been cleared or approved by the Food and Drug Administration. The FDA has determined that such clearance or approval is not necessary. 7 SRC:vaginal swab 1 orange aptima swab 8 Source of Specimen: vaginal swab 1 orange 9 Source of Specimen: vaginal swab 1 orange 10 Source of Specimen: vaginal swab 1 orange 11 Negative: < 0.8 Indeterminate: 0.8 - 0.9 Positive: > 0.9 The CDC recommends that a positive HCV antibody result be followed up with a HCV Nucleic Acid Amplification test (812792). 12 [id number] 13 SEE RESULT BELOW Name: MAYE MARINA : [address]: Blas Bill MD Acct: [id number] Unit: [id number] AGE: 25 Location: [facility] Re04/26/16 SEX: F Status: DEP ER SPEC: [id number] JENNIFER: 04/26/16-[address]: Susana RUTHP-C REQ: [id number] RECD: 04/27/16-1053 STATUS: PATRICK ALSTON DR: Jeanine Weaver MD [facility] _ SOURCE: URINE SPDESC: ORDERED: Urine Culture COMMENTS: [id number] Procedure Result Reported Site Urine Culture Final 04/29/16- 0904 ML Organism 1 ESCHERICHIA COLI [place] Count 1-10,000 (Few) CFU/ML Organism 2 NORMAL THOM [place] Count 50-75,000 (Many) CFU/ML 1. ESCHERICHIA COLI [...] antibiotic reporting. * ML - MAIN LAB ([facility]) . END OF REPORT * ML=Testing performed at Main Lab DEPARTMENT OF PATHOLOGY, [address] [place] [address] Bryant Evans M.D. Director [facility] # [id number] 14 RESULTS VERIFIED BY REPEAT ANALYSIS 15 RESULTS RECHECKED Procedures Date CPT Code Description Status 06/22/2017 25672 Remove Intrauterine Device Completed 08/06/2016 80735 Insertion of intrauterine device (IUD) Completed Encounters Type Date Location Provider CPT E/M Dx Office Visit 08/13/2017 1:15p [place] [address] J30.9 Office Visit 06/22/2017 7:15p Main Office ALYSSA Valles 30254 N94.12 N76.0 Z30.432 Office Visit 04/27/2017 11:30a [place] [address] F41.9 F33.0 Office Visit 03/26/2017 11:15a [place] [address] F41.9 F33.0 Office Visit 03/24/2017 1:40p [facility] Jeanine Weaver M.D. 88466 F41.9 N92.6 N76.0 Office Visit 01/11/2017 11:00a [place] [address] F41.9 N76.0 Office Visit 10/16/2016 11:30a [facility] ALYSSA Valles 45084 N76.0 Office Visit 08/06/2016 1:00p Main Office ALYSSA Valles 59640 Z11.3 N92.6 Z30.430 Office Visit 02/05/2016 1:15p [facility] Maru Murillo 67340 N91.2 Office Visit 10/22/2015 4:40p Main Office Jeanine Weaver M.D. 93546 F33.0 N83.20 D69.6 Office Visit 09/25/2015 2:30p [place] [address] R10.32 R35.0 N64.4 Office Visit 09/23/2015 2:30p [place] [address] Z30.8 Office Visit 09/12/2015 5:50p Main Office Jeanine Weaver M.D. 38698 F33.0 Z30.8 Office Visit 05/17/2015 4:00p Main Office Ursula Davalos, TRINH 57338 F33.0 Z30.8 Plan of Care 12/23/2017 - Marine Herring, FNPJ30.9 Allergic rhinitis, unspecifiedComments: Stop taking sudafed, ok to take benadryl during .O26.91 related conditions, unspecified, first trimesterAllComments:~B_~U_Medication Management~b_~u_ Patient Understands medications he 's taking? Yes No Are there Barriers to Adherence? Yes No Has the patient been asked about herbal supplements and therapies, and OTC meds? Yes No As always, we strongly encourage a healthy diet and makingphysical activity a part of your every day life. If you have questions about how or where to start, please contact the office.
--- NOTE | 2017-12-25 14:17 | ED ---
Abdominal Pain/Female - HPI Summary HPI Summary: The pt is a gravid 27 y/o female presenting to [facility] c/o abdominal cramping since 3 days ago worsened today. The pain is rated 7/10 in severity. She is 2 days shy of a 10 week . The pt reports a F1.P0.A3.L1. All the past 3 abortions were spontaneous and occurred in the first trimester. She notes lower back pain but denies vaginal bleeding. 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 She had ultrasounds at the 5th and 7th week of her and has received her RHOGAM shot. [facility] 09/20/2017. F=full term, P=premature, A=abortions and L=living. Home Medications Medication Instructions Recorded Confirmed Type Pnv No.95/Ferrous Fum/Folic AC 1 tab PO DAILY 12/25/17 12/25/17 History [ and Iron] - History of Current Complaint Chief Complaint: EDOBProblems Stated Complaint: 10 WKS PREG/CRAMPING Time Seen by Provider: 12/25/17 14:06 Hx Obtained From: Patient Hx Last Menstrual Period: 09/20/2017 ?: Yes - 10 weeks in 2 days Onset/Duration: Lasting Days - 3 days, Still Present, Worse Since - Today Timing: Constant Severity Currently: Moderate Pain Intensity: 7 Pain Scale Used: 0-10 Numeric Location: Diffuse Radiates: Yes Radiates to: Back Character: Cramping Aggravating Factor(s): Nothing Alleviating Factor(s): Nothing Associated Signs and Symptoms: Negative: Vaginal Bleeding Allergies/Adverse Reactions: Allergies Allergy/AdvReac Type Severity Reaction Status Date / Time erythromycin base Allergy Swelling Verified 12/25/17 14:29 Of Face,Lips,& Throat Home Medications: Home Medications Pnv No.95/Ferrous Fum/Folic AC [ and Iron] 1 tab PO DAILY 12/25/17 [ History Confirmed 12/25/17] PMH/Surg Hx/FS Hx/Imm Hx Previously Healthy: No - Hx of miscarriages (x3) and ovarian cysts Endocrine/Hematology History: Denies: Hx Diabetes, Hx Thyroid Disease Cardiovascular History: Denies: Hx Hypertension Respiratory History: Denies: Hx Asthma, Hx Chronic Obstructive Pulmonary Disease (COPD) GI History: Denies: Hx Ulcer History: Reports: Hx Kidney Stones - Cancer History Cancer Type, Location and Year: None reported - Surgical History Surgery Procedure, Year, and Place: None reported Infectious Disease History: No Infectious Disease History: Denies: Hx Hepatitis, Hx Human Immunodeficiency Virus (HIV), History Other Infectious Disease, Traveled Outside the [place] in Last 30 Days - Family History Known Family History: Negative: Renal Disease, Seizure Disorder - Social History Occupation: Unemployed Lives: With Family Alcohol Use: Occasionally Substance Use Type: Reports: None Hx Tobacco Use: Yes Type: Smokeless Tobacco Amount Used/How Often: 1/2 Can a Day Length of Time of Smoking/Using Tobacco: 7 Years Have You Smoked in the Last Year: Yes Review of Systems Positive: Abdominal Pain Genitourinary: Negative - Vaginal bleeding Musculoskeletal: Other - Positive: Lower back pain All Other Systems Reviewed And Are Negative: Yes Physical Exam - Summary Physical Exam Summary: Appearance: The patient is well-nourished in no acute respiratory distress and in no acute pain. Skin: The skin is warm and dry and skin color reflects adequate perfusion. HEENT: The head is normocephalic and atraumatic. The pupils are equal and reactive. The conjunctivae are clear and without drainage. Nares are patent and without drainage. Mouth reveals moist mucous membranes and the throat is without erythema and exudate. The external ars are intact. The ear canals are patent and without drainage. The tympanic membranes are intact. Neck: The neck is supple with full range of motion and non-tender. There are no carotid bruits. There is no neck vein distension. Respiratory: Chest is non-tender. Lungs are clear to auscultation and breath sounds are symmetrical and equal. Cardiovascular: Heart is regular rate and rhythm. There is no murmur or rub auscultated. There is no peripheral edema and pulses are symmetrical and equal. Abdomen: The abdomen is soft and mildy tend in epigastric and para-sacral area. There are normal bowel sounds heard in all four quadrants and there is no organomegaly palpated. Musculoskeletal: There is no back tenderness noted. Extremities are non-tender with full range of motion. There is good capillary refill. There is no peripheral edema or calf tenderness elicited. Neurological: Patient is alert and oriented to person, place and time. The patient has symmetrical motor strength in all four extremities. Cranial nerves are grossly intact. Deep tendon reflexes are symmetrical and equal in all four extremities. Psychiatric: The patient has an appropriate affect and does not exhibit any anxiety or depression. Triage Information Reviewed: Yes Vital Signs On Initial Exam: Initial Vitals Temp Pulse Resp BP Pulse Ox 97.8 F 68 18 117/60 100 12/25/17 13:58 12/25/17 13:58 12/25/17 13:58 12/25/17 13:58 12/25/17 13:58 Vital Signs Reviewed: Yes Diagnostics - Vital Signs Vital Signs Temp Pulse Resp BP Pulse Ox 12/25/17 13:58 97.8 F 68 18 117/60 100 - Laboratory Result Diagrams: 12/25/17 14:22 12/25/17 14:22 Lab Statement: Any lab studies that have been ordered have been reviewed, and results considered in the medical decision making process. - Ultrasound No standard instances Ultrasound Interpretation Completed By: Radiologist - Ultrasound Impression:IMPRESSION: Solitary live intrauterine gestation in the mid to lower uterine segment with estimated gestational age of 9 weeks 6 days and AUA GIANLUCA of July 24, 2018. The ED physician reviewed this radiology report. Abdominal Pain Fem Course/Dx - Course Course Of Treatment: Ms. Mclaughlin presented complaining of intermittent epigastric pain, lower abdominal pain and back pain. She was mildly tender in the epigastrium and in the left adnexa. Her vital signs are stable and she was nontoxic in appearance. Labs were unremarkable and ultrasound showed a viable IUP at about 10 weeks. I recommended she use [id number] Pepcid and follow up with her APPLICATION SUPPORT MANAGER. - Diagnoses Provider Diagnoses: Epigastric abdominal pain Is Visit Related: Yes Discharge - Sign-Out/Discharge Documenting (check all that apply): Patient Departure - DC - Discharge Plan Condition: Stable Disposition: HOME Patient Education Materials: Epigastric Pain (ED) Referrals: Jeanine Weaver MD [Primary Care Provider] - Additional Instructions: Follow up with your PCP in 2-3 days and take Pepcid as needed. Return to ED for any new or worsening symptoms - Billing Disposition and Condition Condition: STABLE Disposition: Home - Attestation Statements Document Initiated by Scribe: Yes Documenting Scribe: Kaylene Moore Provider For Whom Scribe is Documenting (Include Credential): Dr. Solo Camacho MD Scribe Attestation: I, Kaylene Moore, scribed for Dr. Solo Camacho MD on 12/25/17 at 2110. Scribe Documentation Reviewed: Yes Provider Attestation: The documentation as recorded by the scribe, Kaylene Moore accurately reflects the service I personally performed and the decisions made by me, Dr. Solo Camacho MD
[2017-12-25 14:43] LABS: ABS Basophils 0 10^3/ul (0-0.2); ABS Eosinophils 0.3 10^3/ul (0-0.6); ABS Lymphocytes 1.4 10^3/ul (1.0-4.8); ABS Monocytes 0.6 10^3/ul (0-0.8); ABS Neutrophils 4.7 10^3/ul (1.5-7.7); ABS Nucleated RBC 0 10^3/ul; Eosinophil % 3.6 % (0-6); Hematocrit 39 % (35-47); Hemoglobin 13.3 g/dl (12.0-16.0); Lymphocyte % 19.8 % (25-47); Mean Corpuscular HGB Conc 35 g/dl (31-36); Mean Corpuscular Hemoglobin 31 pg (27-31); Mean Corpuscular Volume 90 fL (80-97); Mean Platelet Volume 7.8 fL (7.4-10.4); Nucleated Red Blood Cells % 0; Platelet Count 189 10^3/ul (150-450); Red Blood Count 4.29 10^6/ul (4.00-5.40); Red Cell Distribution Width 13 % (10.5-15)
[2017-12-25 15:09] LABS: EGFR Non-African American 106.4 (>60)
[2017-12-25 16:31] LABS: Urine Appearance Cloudy; Urine Blood Negative (Negative); Urine Color Yellow; Urine Ketones Negative (Negative); Urine Protein Negative (Negative); Urine Red Blood Cell Absent (Absent); Urine Specific Gravity 1.008 (1.010-1.030); Urine Urobilinogen Negative (Negative); Urine White Blood Cell Trace(0-5/hpf) (Absent)
[2017-12-25 18:00] VITALS: BP 0/0
== END 2017-12-25 17:59 | disposition home or self-care (01) ==
LOC: ED 13:47
DX: O26.891 Other specified pregnancy related conditions, first trimester (principal); R10.13 Epigastric pain; Z3A.10 10 weeks gestation of pregnancy; O99.331 Smoking (tobacco) complicating pregnancy, first trimester; F17.220 Nicotine dependence, chewing tobacco, uncomplicated
CPT/HCPCS: 36415; 76801; 80053; 81003; 81015; 84702; 85025; 87086; 99282

== ENCOUNTER 2019-02-09 15:33 | Emergency (ER) | payer OTHER ==
[2019-02-09 17:53] VITALS: BP 111/68
--- NOTE | 2019-02-09 19:10 | UC ---
Knee Pain HPI - HPI Summary HPI Summary: Patient is a 28yo female presenting with R anterior knee pain x2 weeks. Denies trauma or injury. 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 Patient describes pain as sharp pain in the front of her knee that is worse with bending and physical activity. Notes only time is does not hurt is when she is standing still. Notes "popping feeling" at random times." Denies swelling and bruising. Denies internal knee pain. Denies radiating pain. Denies numbness and tingling. Denies prior knee injury, but notes had similar pain like this last year that went away without treatment. States this pain is temporarily relieved by ibuprofen but "comes right back." - History of Current Complaint Chief Complaint: UCLowerExtremity Stated Complaint: RIGHT KNEE COMPLAINT Hx Obtained From: Patient Hx Last Menstrual Period: 01/20 Pain Intensity: 5 Pain Scale Used: 0-10 Numeric - Allergies/Home Medications Allergies/Adverse Reactions: Allergies Allergy/AdvReac Type Severity Reaction Status Date / Time erythromycin base Allergy Swelling Verified 02/09/19 17:54 Of Face,Lips,& Throat Home Medications: Home Medications Ibuprofen TAB* [Motrin TAB* 400 MG] 400 mg PO Q4H PRN 02/09/19 [History Confirmed 02/09/19] PMH/Surg Hx/FS Hx/Imm Hx Previously Healthy: Yes - Surgical History Surgical History: None Surgery Procedure, Year, and Place: None reported - Family History Known Family History: Positive: None, Unknown Negative: Renal Disease, Seizure Disorder - Social History Alcohol Use: Occasionally Substance Use Type: None Smoking Status (MU): Former Smoker Type: Smokeless Tobacco Amount Used/How Often: 1/2 Can a Day Length of Time of Smoking/Using Tobacco: 7 Years Have You Smoked in the Last Year: Yes - Immunization History Hx Tetanus, Diphtheria Vaccination: Yes Vaccination Up to Date: Yes Review of Systems All Other Systems Reviewed And Are Negative: No Constitutional: Positive: Negative. Negative: Fever, Chills Skin: Positive: Negative. Negative: Rash, Bruising Cardiovascular: Positive: Negative Gastrointestinal: Positive: Negative Musculoskeletal: Positive: Arthralgia - R anterior knee pain. Negative: Decreased ROM, Edema Neurological: Positive: Negative. Negative: Paresthesia, Numbness Physical Exam Triage Information Reviewed: Yes Appearance: Well-Appearing, No Pain Distress, Well-Nourished Vital Signs: Initial Vital Signs Temp 98.3 F 02/09/19 17:49 Pulse 69 02/09/19 17:49 Resp 20 02/09/19 17:49 BP 111/68 02/09/19 17:49 Pulse Ox 98 02/09/19 17:49 Vital Signs Reviewed: Yes Eyes: Positive: Conjunctiva Clear ENT: Positive: Hearing grossly normal Neck: Positive: Supple Respiratory: Positive: No respiratory distress Cardiovascular: Positive: Pulses Normal Musculoskeletal: Positive: Strength Intact - knee flexion/extension equal strength b/l, ROM Intact - knee flexion/extension equal and full b/l, Edema @ - minimal edema noted of anterolateral R knee, Other: - mild tenderness to palpation of R anterior patella and tibial tuberosity Neurological Exam: Other - sensation grossly intact Neurological: Positive: Alert Psychological: Positive: Age Appropriate Behavior Skin Exam: Normal - no erythema or ecchymosis Diagnostics - Radiology R knee Radiology Interpretation Completed By: ED Physician Summary of Radiographic Findings: no acute process Knee Pain Course/Dx - Course Course Of Treatment: Discussed initial negative read of radiographs and informed patient that she would be notified with any abnormalities found on final report tomorrow morning. Instructed to continue with symptomatic treatment and follow up with sports medicine. Also provided patient with referral to PT. Patient voiced understanding and agreed with treatment plan. - Differential Dx/Diagnosis Differential Diagnosis/HQI/PQRI: Bursitis, Bairon-Schlatter Disease, Patellofemoral Syndrome, Sprain, Tendonitis Provider Diagnosis: Right anterior knee pain Discharge ED - Sign-Out/Discharge Documenting (check all that apply): Patient Departure All imaging exams completed and their final reports reviewed: No - Discharge Plan Condition: Stable Disposition: HOME Patient Education Materials: Knee Pain (ED) Referrals: [facility] [Outside] - As Soon As Possible Additional Instructions: As discussed, your radiograph was reviewed by the provider that treated you tonight. It will be read by a radiologist tomorrow morning. If there is a finding other than that discussed with you today, you will receive a call from a care provider. Continue to rest, ice, heat, and elevate to help alleviate pain symptoms. You may continue to use over the counter pain medications as directed for pain relief. Refrain from strenuous physical activity until pain has resolved. Follow up with the sports medicine and physical therapy referrals for further evaluation and treatment. - Billing Disposition and Condition Condition: STABLE Disposition: Home - Attestation Statements Provider Attestation: Patient not seen by me I was available for consult Chart reviewed KATERINE
--- NOTE | 2019-02-10 22:13 | UC ---
- Progress Note Progress Note: Final radiologist reading of right knee x-ray from 2019 is no fracture. Provider interpretation same date is the same therefore there is no discrepancy. Course/Dx - Diagnoses Provider Diagnoses: Right anterior knee pain Discharge ED - Sign-Out/Discharge Documenting (check all that apply): Patient Departure All imaging exams completed and their final reports reviewed: Yes - Discharge Plan Condition: Stable Disposition: HOME Patient Education Materials: Knee Pain (ED) Referrals: [facility] [Outside] - As Soon As Possible Additional Instructions: As discussed, your radiograph was reviewed by the provider that treated you tonight. It will be read by a radiologist tomorrow morning. If there is a finding other than that discussed with you today, you will receive a call from a care provider. Continue to rest, ice, heat, and elevate to help alleviate pain symptoms. You may continue to use over the counter pain medications as directed for pain relief. Refrain from strenuous physical activity until pain has resolved. Follow up with the sports medicine and physical therapy referrals for further evaluation and treatment. - Billing Disposition and Condition Condition: STABLE Disposition: Home
== END 2019-02-09 19:31 | disposition home or self-care (01) ==
LOC: UCCORT 15:33
DX: M25.561 Pain in right knee (principal); Z88.1 Allergy status to other antibiotic agents; Z87.891 Personal history of nicotine dependence
CPT/HCPCS: 99211; G0463